=== PATIENT | male | born 1950 | race Caucasian/White ===

== ENCOUNTER 2018-11-06 12:08 | Outpatient (CLI) | payer MEDICARE | END 2018-11-06 23:59 | disposition home or self-care (01) | LOC: CFH 12:08 | PROVIDERS: ATTEND Internal Medicine Cardiovascular Disease | DX: I21.19 ST elevation (STEMI) myocardial infarction involving other coronary artery of inferior wall (principal) | CPT/HCPCS: 78452; 93017; A9502; J2785 ==

== ENCOUNTER 2019-01-29 10:35 | Day surgery (SDC) | payer MEDICARE ==
[~2019-01-29] VITALS: Ht 167.6 cm; Wt 72.4 kg
[~2019-01-29 10:35] MED LIST: ASPI-496 PO; ATOR-2 PO; AZEL137S4 NAS; BACITRACIN OINT 500U/GM, 15 GM ONE; BUDE0.5A INH; CARV3.122 PO; EPINEPHRINE TOPICAL SOLN 1 MG/ML, 30ML ONE; FLUORESCEIN SODIUM 500 MG/5 ML ONE; FLUT200B INH; LIDOCAINE 1%-EPI 1:100K, 20ML ONE; OXYMETAZOLINE NASAL SPRAY 0.05%, 15ML ONE
[2019-01-29] MEDS ORDERED: LACTATED RINGERS 1,000 ML IV SCH (11:02)
[2019-01-29] MEDS ORDERED: FENTANYL PF 250 MCG/5ML ONE (11:06)
[2019-01-29] MEDS ORDERED: MIDAZOLAM 1 MG/ML, 2ML ONE (11:06)
[2019-01-29] MEDS ORDERED: HYDROmorphone 2 MG/ML, 1ML IVPush PRN (12:30)
[2019-01-29] MEDS ORDERED: ONDANSETRON 2MG/ML, 2ML IV PRN (12:30)
[2019-01-29] MEDS ORDERED: PROMETHAZINE 25 MG SUPP PR PRN (12:30)
[2019-01-29] MEDS ORDERED: hydrALAzine 20 MG/ML, 1ML IV PRN (12:30)
[2019-01-29] MEDS ORDERED: MEPERIDINE/PF 25MG/ML,1ML IVPush PRN (12:30)
[2019-01-29] MEDS ORDERED: LORazepam 2 MG/ML, 1ML IVPush PRN (12:30)
[2019-01-29] MEDS ORDERED: OXYcodone 5 MG/5 ML ORAL.SOL UDC PO PRN (12:30)
[2019-01-29] MEDS ORDERED: LABETALOL 5MG/ML, 20ML IV PRN (12:30)
[2019-01-29] MEDS ORDERED: PROMETHAZINE 25 MG/ML, 1ML IV PRN (12:30)
[2019-01-29] MEDS ORDERED: FENTANYL PF 100 MCG/2ML IV PRN (12:30)
[2019-01-29] MEDS ORDERED: ACETAMINOPHEN 325 MG TABLET PO PRN (12:30)
[2019-01-29] MEDS ORDERED: ONDANSETRON ODT 8 MG PO PRN (12:30)
[2019-01-29] MEDS ORDERED: METOPROLOL 1 MG/ML, 5ML IV PRN (12:30)
[2019-01-29] MEDS ORDERED: SUCCINYLCHOLINE 20 MG/ML, 10ML ONE (12:39)
[2019-01-29] MEDS ORDERED: ROCURONIUM 10MG/ML,5ML ONE (12:39)
[2019-01-29] MEDS ORDERED: DEXAMETHASONE 4 MG/ML, 1ML ONE (12:39)
[2019-01-29] MEDS ORDERED: NEOSTIGMINE 1 MG/ML, 10ML ONE (12:39)
[2019-01-29] MEDS ORDERED: CEFAZOLIN 1,000 MG ONE (12:39)
[2019-01-29] MEDS ORDERED: ONDANSETRON 2MG/ML, 2ML ONE (12:39)
[2019-01-29] MEDS ORDERED: GLYCOPYRROLATE 0.2MG/1ML, 5ML ONE (12:39)
[2019-01-29] MEDS ORDERED: PROPOFOL 10 MG/ML, 20ML ONE (12:39)
[2019-01-29] MEDS ORDERED: SUGAMMADEX 200 MG/2 ML IVPush ONE (14:20)
== END 2019-01-29 17:25 | disposition home or self-care (01) ==
LOC: OUT 10:35
PROVIDERS: ATTEND Otolaryngology
DX: J32.0 Chronic maxillary sinusitis (principal); J32.4 Chronic pansinusitis; J33.8 Other polyp of sinus; I25.10 Atherosclerotic heart disease of native coronary artery without angina pectoris; I25.2 Old myocardial infarction; Z79.899 Other long term (current) drug therapy; Z95.1 Presence of aortocoronary bypass graft; Z98.890 Other specified postprocedural states
CPT/HCPCS: 31253; 31259; 31267; 88304; J0690; J1100; J2250; J2405; J2704; J2710; J3010; J3490; J7120; J0330